=== PATIENT | male | born 1995 | race Caucasian/White ===

== ENCOUNTER → 2016-06-26 | Outpatient (CLI) | payer BC ==
[~2016-06-26] MED LIST: ACIDOPHILIS PO; AZULFIDINE500 MG/TAB PO; CALCIUM 600MG+D1 TAB PO; CLARITIN 1010 MG/TAB PO; FOLIC ACID 11 MG/TA1 PO; HUMIRA40 MG/0.1 SC; METHOTREXA2.5 MG/TAB PO; MUCINEX 60600 MG/TA1 PO; MULTIPLE VITAMI1 CAP PO; NEURONTIN300 MG/CAP PO; OSTEO-BI-FLEX 21 TAB PO; ULTRAM 50MG TAB50 MG PO; VIT B COMPLEX; VITAMIN B COMPL1 SGL PO
== END ==
LOC: COL.LAB 13:18
DX: K29.80 Duodenitis without bleeding (principal)

== ENCOUNTER → 2016-07-17 | Outpatient (CLI) | payer BC | LOC: COL.LAB 16:05 | DX: K29.80 Duodenitis without bleeding (principal) ==

== ENCOUNTER → 2016-08-10 | Outpatient (CLI) | payer BC ==
[2016-08-10 12:51] LABS: HEMATOCRIT 43.2 % (42.0-52.0); HEMOGLOBIN 14.5 g/dl (13.5-18.0); MEAN CELL VOLUME 88 fl (80.0-100.0); MEAN CORPUSCULAR HEMOGLOBIN 30 pg (27.0-31.0); MEAN CORPUSCULAR HGB CONC 34 g/dl (33.0-37.0); MEAN PLATELET VOLUME 9.8 fl (7.4-10.4); PLATELET COUNT 300 K/mm3 (130-400); RED BLOOD COUNT 4.92 M/mm3 (4.20-5.60); REDCELL DISTRIBUTION WIDTH-CV 11.9 % (11.5-14.5)
[2016-08-10 13:11] LABS: ALBUMIN 5.1 gm/dL (3.5-5.0); BILIRUBIN,DIRECT 0.5 mg/dL (0.0-0.4); BILIRUBIN,TOTAL 0.9 mg/dL (0.0-1.0); TOTAL PROTEIN 9.4 gm/dL (6.4-8.2)
[2016-08-10 15:18] LABS: EOSINOPHIL 2 % (0-4); NEUTROPHILS 30 % (42.0-75.2); PLATELET ESTIMATE NORMAL (NORMAL); TOTAL CELLS COUNTED 100
[2016-08-10 15:21] LABS: ADD PATHOLOGY DIFF REVIEW YES
[2016-08-13 08:50] LABS: PATHOLOGY DIFF REVIEW OK
== END ==
LOC: COL.LAB 12:24
PROVIDERS: Internal Medicine
DX: K51.011 Ulcerative (chronic) pancolitis with rectal bleeding (principal)

== ENCOUNTER 2016-08-13 13:10 | Outpatient (CLI) | payer BC ==
[~2016-08-13] VITALS: Ht 190.5 cm; Wt 100.0 kg
[~2016-08-13 13:10] MED LIST changes: -CLARITIN 1010 MG/TAB PO; -FOLIC ACID 11 MG/TA1 PO; -METHOTREXA2.5 MG/TAB PO; -MUCINEX 60600 MG/TA1 PO; -NEURONTIN300 MG/CAP PO; -ULTRAM 50MG TAB50 MG PO; -VITAMIN B COMPL1 SGL PO
[2016-08-13] MEDS ORDERED: CLARITIN 1010 MG/TAB PO (13:58)
[2016-08-13] MEDS ORDERED: VITAMIN B COMPL1 SGL PO (13:59)
[2016-08-13] MEDS ORDERED: FOLIC ACID 11 MG/TA1 PO (14:00)
[2016-08-13] MEDS ORDERED: METHOTREXA2.5 MG/TAB PO (14:01)
[2016-08-13] MEDS ORDERED: ULTRAM 50MG TAB50 MG PO (14:02)
[2016-08-13] MEDS ORDERED: NEURONTIN300 MG/CAP PO (14:02)
[2016-08-13] MEDS ORDERED: MUCINEX 60600 MG/TA1 PO (14:03)
[2016-08-13 14:15] VITALS: BP 124/63; PULSE 69; TEMP 98
[2016-08-13 14:45] VITALS: BP 140/98; PULSE 61; TEMP 98.1
[2016-08-13 15:15] VITALS: BP 119/60; PULSE 66; TEMP 98
[2016-08-13 15:45] VITALS: BP 110/66; PULSE 56; TEMP 97.8
[2016-08-13 16:15] VITALS: BP 130/65; PULSE 66; TEMP 97.8
== END 2016-08-13 16:57 | disposition home or self-care (01) ==
LOC: EUO 13:10
DX: K51.90 Ulcerative colitis, unspecified, without complications (principal)
CPT/HCPCS: J1745; J7050

== ENCOUNTER → 2016-08-24 | Outpatient (CLI) | payer BC ==
[~2016-08-24] MED LIST changes: +CLARITIN 1010 MG/TAB PO; +FOLIC ACID 11 MG/TA1 PO; +METHOTREXA2.5 MG/TAB PO; +MUCINEX 60600 MG/TA1 PO; +NEURONTIN300 MG/CAP PO; +ULTRAM 50MG TAB50 MG PO; +VITAMIN B COMPL1 SGL PO
[2016-08-24 12:45] LABS: HEMATOCRIT 40.9 % (42.0-52.0); HEMOGLOBIN 13.6 g/dl (13.5-18.0); MEAN CELL VOLUME 89 fl (80.0-100.0); MEAN CORPUSCULAR HEMOGLOBIN 30 pg (27.0-31.0); MEAN CORPUSCULAR HGB CONC 33 g/dl (33.0-37.0); MEAN PLATELET VOLUME 10.5 fl (7.4-10.4); PLATELET COUNT 198 K/mm3 (130-400); RED BLOOD COUNT 4.58 M/mm3 (4.20-5.60); REDCELL DISTRIBUTION WIDTH-CV 12.7 % (11.5-14.5); WHITE BLOOD COUNT 4.3 K/mm3 (4.8-10.8)
[2016-08-24 12:48] LABS: ADD PATHOLOGY DIFF REVIEW NO
[2016-08-24 15:15] LABS: EOSINOPHIL 3 % (0-4); NEUTROPHILS 22 % (42.0-75.2); TOTAL CELLS COUNTED 100
[2016-08-24 15:16] LABS: HYPOCHROMIA 1+
== END ==
LOC: COL.LAB 12:11
PROVIDERS: Internal Medicine
DX: K51.011 Ulcerative (chronic) pancolitis with rectal bleeding (principal)

== ENCOUNTER → 2016-09-10 | Outpatient (CLI) | payer BC ==
[2016-09-10 13:56] LABS: BASO # 0.1 (0.0-0.2); BASO % 0.9 % (0.0-2.0); EOS # 0.1 (0.0-0.7); EOS % 1.4 % (0-4.0); GRAN # 3.1 (1.4-6.5); GRAN % 56.4 % (42.2-75.2); HEMATOCRIT 38.8 % (42.0-52.0); HEMOGLOBIN 13.1 g/dl (13.5-18.0); LYMPH % 35.5 % (20.0-51.0); MEAN CELL VOLUME 89 fl (80.0-100.0); MEAN CORPUSCULAR HEMOGLOBIN 30 pg (27.0-31.0); MEAN CORPUSCULAR HGB CONC 34 g/dl (33.0-37.0); MEAN PLATELET VOLUME 10.5 fl (7.4-10.4); MONO # 0.3 (0.1-0.6); MONO % 5.6 % (1.7-9.3); PLATELET COUNT 259 K/mm3 (130-400); RED BLOOD COUNT 4.36 M/mm3 (4.20-5.60); REDCELL DISTRIBUTION WIDTH-CV 13.3 % (11.5-14.5); WHITE BLOOD COUNT 5.6 K/mm3 (4.8-10.8)
[2016-09-10 14:22] LABS: ALBUMIN 4.5 gm/dL (3.5-5.0); BILIRUBIN,DIRECT 0.4 mg/dL (0.0-0.4); BILIRUBIN,TOTAL 0.9 mg/dL (0.0-1.0); TOTAL PROTEIN 8.2 gm/dL (6.4-8.2)
[2016-09-10 15:00] VITALS: BP 141/66; PULSE 56; TEMP 98.2
[2016-09-10 15:30] VITALS: BP 145/74; PULSE 47; TEMP 98
[2016-09-10 16:00] VITALS: BP 140/70; PULSE 60; TEMP 97.7
[2016-09-10 16:30] VITALS: BP 138/78; PULSE 56; TEMP 97.7
[2016-09-10 17:00] VITALS: BP 140/70; PULSE 62; TEMP 97.4
== END ==
LOC: EUO 12:55
PROVIDERS: Internal Medicine Gastroenterology
DX: K51.90 Ulcerative colitis, unspecified, without complications (principal)
CPT/HCPCS: J1745; J7050

== ENCOUNTER 2016-11-05 09:45 | Outpatient (CLI) | payer BC ==
[~2016-11-05] VITALS: Ht 190.5 cm; Wt 102.0 kg
[2016-11-05 10:43] LABS: BASO % 0.6 % (0.0-2.0); EOS # 0.2 (0.0-0.7); EOS % 2.9 % (0-4.0); GRAN # 3.1 (1.4-6.5); GRAN % 59.6 % (42.2-75.2); HEMOGLOBIN 14.8 g/dl (13.5-18.0); LYMPH # 1.5 (1.2-3.4); LYMPH % 28.9 % (20.0-51.0); MEAN CELL VOLUME 91 fl (80.0-100.0); MEAN CORPUSCULAR HEMOGLOBIN 31 pg (27.0-31.0); MEAN CORPUSCULAR HGB CONC 34 g/dl (33.0-37.0); MEAN PLATELET VOLUME 10.4 fl (7.4-10.4); MONO # 0.4 (0.1-0.6); MONO % 7.8 % (1.7-9.3); PLATELET COUNT 265 K/mm3 (130-400); RED BLOOD COUNT 4.74 M/mm3 (4.20-5.60); REDCELL DISTRIBUTION WIDTH-CV 12.5 % (11.5-14.5); WHITE BLOOD COUNT 5.3 K/mm3 (4.8-10.8)
[2016-11-05 11:02] LABS: ALBUMIN 4.7 gm/dL (3.5-5.0); BILIRUBIN,TOTAL 0.9 mg/dL (0.0-1.0); TOTAL PROTEIN 8.5 gm/dL (6.4-8.2)
[2016-11-05 11:14] LABS: BILIRUBIN,DIRECT 0.5 mg/dL (0.0-0.4)
[2016-11-05 11:40] VITALS: BP 131/55; PULSE 59; TEMP 97.8
[2016-11-05 12:10] VITALS: BP 137/69; PULSE 59; TEMP 98
[2016-11-05 12:40] VITALS: BP 137/58; PULSE 59; TEMP 97.8
[2016-11-05 13:10] VITALS: BP 134/58; PULSE 65; TEMP 98.4
[2016-11-05 13:40] VITALS: BP 150/67; PULSE 65; TEMP 98.2
== END 2016-11-05 15:48 | disposition home or self-care (01) ==
LOC: EUO 09:45
PROVIDERS: Internal Medicine Gastroenterology
DX: K51.90 Ulcerative colitis, unspecified, without complications (principal)
CPT/HCPCS: J1745; J7050